=== PATIENT | female | born 1970 | race Caucasian/White ===

== ENCOUNTER → 2020-07-12 | Outpatient (CLI) | payer BC ==
[~2020-07-12] MED LIST: ACET500T68 PO; ASPI-630 PO; CELE200C PO; CETI10TA74 PO; OMEG-117 PO
== END | disposition home or self-care (01) ==
LOC: CCL 13:33
PROVIDERS: ATTEND Internal Medicine Cardiovascular Disease
DX: Z01.812 Encounter for preprocedural laboratory examination (principal); Z20.828 Contact with and (suspected) exposure to other viral communicable diseases; I73.9 Peripheral vascular disease, unspecified
CPT/HCPCS: U0003-CS

== ENCOUNTER 2020-07-15 06:56 | Outpatient (CLI) | payer BC ==
[2020-07-15] VITALS (12 sets, daily range): BP systolic 134–163; BP diastolic 74–99
[~2020-07-15] VITALS: Ht 170.2 cm; Wt 111.1 kg
[2020-07-15] MEDS ORDERED: LIDOCAINE 1% Multi-Dose 20 ML VIAL. ONE (07:35)
[2020-07-15] MEDS ORDERED: IODIXANOL 320 MG/ML 100 ML VIAL. ONE (07:35)
[2020-07-15] MEDS ORDERED: ASPI-630 PO (07:53)
[2020-07-15] MEDS ORDERED: CELE200C PO (07:53)
[2020-07-15] MEDS ORDERED: CETI10TA74 PO (07:53)
[2020-07-15] MEDS ORDERED: ACET500T68 PO (07:53)
[2020-07-15] MEDS ORDERED: OMEG-117 PO (07:53)
[2020-07-15 07:55] LABS: HEMATOCRIT 39.6 % (36.0-47.0); HEMOGLOBIN 13.3 g/dL (12.0-15.5); RED BLOOD COUNT 4.46 x10^6/uL (3.50-5.40); RED CELL DISTRIBUTION WIDTH 13.1 % (11.5-14.5)
[2020-07-15 08:04] LABS: PROTHROMBIN TIME PATIENT 12.2 SEC (11.7-14.0)
[2020-07-15 08:08] LABS: CALCIUM 8.6 mg/dL (8.5-10.1); CREATININE 0.9 mg/dL (0.6-1.0); POTASSIUM 4.4 mmol/L (3.5-5.1)
[2020-07-15] MEDS ORDERED: fentaNYL PF VIAL 250 MCG/5 ML VIAL ONE (08:34)
[2020-07-15] MEDS ORDERED: HEPARIN for IV BOLUS 10,000 UNIT/10 ML VIAL. ONE (08:34)
[2020-07-15] MEDS ORDERED: MIDAZOLAM HCL/PF 5 MG/5 ML VIAL. ONE (08:34)
[2020-07-15] MEDS ORDERED: VERAPAMIL 5 MG/2 ML VIAL. ONE (08:41)
[2020-07-15] MEDS ORDERED: VERAPAMIL 5 MG/2 ML VIAL. IART ONE (09:00)
[2020-07-15] MEDS ORDERED: NITROGLYCERIN 200 MCG/2 ML SYRINGE FOR CATH/VASC LAB. IART ONE (09:00)
[2020-07-15] MEDS ORDERED: IODIXANOL 320 MG/ML 100 ML VIAL. IART ONE (09:00)
[2020-07-15] MEDS ORDERED: MIDAZOLAM HCL/PF 5 MG/5 ML VIAL. IV ONE (09:00)
[2020-07-15] MEDS ORDERED: fentaNYL PF VIAL 250 MCG/5 ML VIAL IV ONE (09:00)
[2020-07-15] MEDS ORDERED: HEPARIN for IV BOLUS 10,000 UNIT/10 ML VIAL. IART ONE (09:00)
[2020-07-15] MEDS ORDERED: LIDOCAINE 1% Multi-Dose 20 ML VIAL. INJ ONE (09:00)
--- NOTE | 2020-07-15 09:32 | CARD ---
MR#: [id number] Date of Study: 07/15/2020 Ordering Physician: DELVIS STANTON, Referring Physician: DELVIS STANTON, Tech: MEL ESPINAL RT(R) APPROVED REPORT Patient StatusOUT-PATIENT Buccaro: MEL ESPINAL RT(R) Procedure(s) performed: Aortogram and bilateral lower extremity runoff FLUORO TIME: 3.6 MINUTES DOSE: 98 GYCM2 CONTRAST: 70ML VIVIPAQUE MODERATE SEDATION: 28 MINUTES PROCEDURE NARRATIVE After explaining the risks, benefits and alternative options, informed consent was obtained from shabbir ent. Patient was brought to the cardiac [facility] and her right wrist was prepped and draped in the u sual fashion after confirming a positive modified Jd's test. Arterial access was obtained in the right radial artery and 6 Lao sheath was inserted. A 6 Lao R2P multicurve catheter was then ad vanced under fluoroscopy guidance and with the tip positioned in the right common iliac artery, selec tive right lower extremity angiography was performed. This was then advanced into the left common il iac artery and selective left lower extremity angiography was performed. Finally, with the tip posit ioned in the distal descending aorta, aorto iliac angiography was performed. Patient tolerated the p rocedure well. Hemostasis was achieved using TR band. There were no immediate complications. FINDINGS 1. No significant stenosis involving the distal descending aorta. 2. Bilateral common iliac and external iliac arteries did not show any significant stenosis. 3. Bilateral common femoral and superficial femoral arteries did not show any significant stenosis. 4. No significant stenosis involving bilateral popliteal arteries. 5. There is three vessel runoff below the knee bilaterally. There was slightly sluggish flow below the knee probably from microvascular dysfunction. Conclusion No significant peripheral artery stenosis. Signed by : Delvis Stanton, Electronically Approved : 07/15/2020 09:32:19
[2020-07-15] MEDS ORDERED: IV 1/2 NORMAL SALINE 1,000 ML IV SCH (09:34)
--- NOTE | 2020-07-15 09:34 | PDOC ---
MODERATE SEDATION ASSESSMENT RISKS/ALTERNATIVES Risks/Alternatives Risks and alternatives of this type of sedation and procedure discussed with: RISK/ALTERNATIVES: Patient H & P ON CHART H & P H & P on chart and reviewed for co-morbid conditions and appropriate labs. H&P ON CHART: Yes STATUS PREG STATUS ASSESSED: N/A MEDS/ALLERGIES REVIEWED Meds/Allergies Reviewed Medications and Allergies including time and route of recently administered narcotics and sedatives. MEDS/ALLERGIES REVIEWED: Yes ASA RATING ASA RATING: II AIRWAY ASSESSMENT Airway Assessment Airway patency, oral function limitations, presence of caps, crowns, dentures, partials, and ability to extend neck assessed. AIRWAY ASSESSMENT: Yes MALLAMPATI SCORE MALLAMPATI SCORE: II PRE-SEDATION ASSESSMENT PRE-SEDATION ASSESSMENT: Yes DELVIS STANTON MD Jul 15, 2020 09:34
--- NOTE | 2020-07-15 12:08 | NUR ---
Pt and given discharge instructions, and paperwork signed. Discharge packet given, with education on radial site care and post moderate sedation. Pt denies any pain, sob, or dizziness. Pt ambulated to the bathroom with standby assistance; with no complications. Pt's iv in right hand remains in and patient transferred to echo room for further testing.
--- NOTE | 2020-07-15 18:01 | CARD ---
MR#: [id number] Date of Study: 07/15/2020 Ordering Physician: DELVIS STANTON, Referring Physician: DELVIS STANTON, Tech: Sharon Mccann APPROVED REPORT EXAM: Two-dimensional and M-mode echocardiogram with Doppler and color Doppler. Other Information Quality : GoodHR: 67bpm Technically limited study due to body habitus. INDICATION Dyspnea 2D DIMENSIONS RVDd2.9 (2.9-3.5cm)Left Atrium(2D)2.9 (1.6-4.0cm) IVSd1.0 (0.7-1.1cm)Aortic Root(2D)3.1 (2.0-3.7cm) LVDd4.6 (3.9-5.9cm)LVOT Diameter2.1 (1.8-2.4cm) PWd0.9 (0.7-1.1cm)LVDs3.0 (2.5-4.0cm) FS (%) 34.6 %SV60.5 ml LVEF(%)63.8 (>50%) Aortic Valve AoV Peak Amador.106.2cm/sAoV VTI22.2cm AO Peak GR.4.5mmHgLVOT Peak Amador.81.0cm/s LVOT VTI 16.36cmAO Mean GR.3mmHg AKUA (VMAX)2.41cm2 Mitral Valve MV E Eknjetak78.6cm/sMV DECEL [id number] MV A Qjexoqzk64.5cm/sMV E Mean Gr.1mmHg MV [id number]/A Ratio0.9 MVA (PHT)2.09cm2 TDI E/Lateral E'4.8E/Medial E'4.3 Pulmonary Valve PV Peak Dblvfaaf10.6cm/sPV Peak Grad.3mmHg Pulmonary Vein S1 Barirvei76.6cm/sD2 Ipwnzvyo79.9cm/s PVa [id number] LEFT VENTRICLE The left ventricle is normal size. There is normal left ventricular wall thickness. The left ventricu lar systolic function is normal and the ejection fraction is within normal range. The Ejection Fracti on is 55-60%. There is normal LV segmental wall motion. Transmitral Doppler flow pattern is Grade I-a bnormal relaxation pattern. RIGHT VENTRICLE The right ventricle is normal size. There is normal right ventricular wall thickness. The right ventr icular systolic function is normal. ATRIA The left atrium size is normal. The right atrium size is normal. The interatrial septum is intact wit h no evidence for an atrial septal defect or patent foramen ovale as noted on 2-D or Doppler imaging. AORTIC VALVE The aortic valve is normal in structure and function. Doppler and Color Flow revealed no significant aortic regurgitation. There is no significant aortic valvular stenosis. Calculated aortic valve area is 2.40 cm2 with maximum pressure gradient of 6 mmHg and mean pressure gradient of 3 mmHg. MITRAL VALVE The mitral valve is normal in structure and function. There is no evidence of mitral valve prolapse. There is no mitral valve stenosis. Doppler and Color Flow revealed no mitral valve regurgitation note d. TRICUSPID VALVE The tricuspid valve is normal in structure and function. Doppler and Color Flow revealed no tricuspid valve regurgitation noted. There is no tricuspid valve stenosis. PULMONIC VALVE The pulmonic valve is not well visualized. Doppler and Color Flow revealed trace pulmonic valvular re gurgitation. There is no pulmonic valvular stenosis. GREAT VESSELS The aortic root is normal in size. The ascending aorta is normal in size. The IVC is normal in size a nd collapses >50% with inspiration. PERICARDIAL EFFUSION There is no evidence of significant pericardial effusion. Critical Notification Critical Value: No <Conclusion> The left ventricular systolic function is normal and the ejection fraction is within normal range. Th e Ejection Fraction is 55-60%. There is normal LV segmental wall motion. Signed by : Jimmy Arana, Electronically Approved : 07/15/2020 18:00:35
== END 2020-07-15 12:45 | disposition home or self-care (01) ==
LOC: CCL 06:56
PROVIDERS: ATTEND Internal Medicine Cardiovascular Disease
DX: R06.09 Other forms of dyspnea (principal); Z88.0 Allergy status to penicillin; Z88.5 Allergy status to narcotic agent; Z88.8 Allergy status to other drugs, medicaments and biological substances; Z87.891 Personal history of nicotine dependence; Z79.82 Long term (current) use of aspirin; Z79.899 Other long term (current) drug therapy; Z79.01 Long term (current) use of anticoagulants
CPT/HCPCS: 36245; 36415; 75625; 75716; 80048; 85027; 85610; 93306; 99152; 99153; C1769; C1887; C1892; J1644; J2250; J3010; J3490; Q9967

== ENCOUNTER 2021-09-25 06:52 | Day surgery (SDC) | payer BC ==
[~2021-09-25] VITALS: Ht 170.2 cm; Wt 115.0 kg
[~2021-09-25 06:52] MED LIST changes: +HYDROmorphone 2 MG/ML VIAL IVP PRN; +IV RINGERS,LACTATED 1000ML 1,000 ML IV SCH; +MORPHINE SULFATE 2 MG/ML INJ. IVP PRN; +PROCHLORPERAZINE 10 MG/2 ML VIAL. IVP PRN; +fentaNYL PF VIAL 100 MCG/2 ML VIAL IVP PRN
[2021-09-25] MEDS ORDERED: BUPIVACAINE-EPI 0.5% 30 ML VIAL KIT. ONE (07:20)
[2021-09-25] MEDS ORDERED: GELATIN SPONGE SIZE 100. ONE (07:20)
[2021-09-25 07:26] VITALS: BP 131/61
[2021-09-25] MEDS ORDERED: PROPOFOL 10 MG/ML (20ML) VIAL. IV ONE (07:27)
[2021-09-25] MEDS ORDERED: ONDANSETRON PF 4 MG/2 ML VIAL. ONE (07:28)
[2021-09-25] MEDS ORDERED: KETOROLAC 30 MG/ML VIAL. ONE (07:28)
[2021-09-25] MEDS ORDERED: LIDOCAINE 2% PF 5 ML VIAL. ONE (07:28)
[2021-09-25] MEDS ORDERED: DEXAMETHASONE SOD PHOS 20 MG/5 ML VIAL. ONE (07:28)
[2021-09-25] MEDS ORDERED: fentaNYL PF VIAL 100 MCG/2 ML VIAL ONE (07:29)
[2021-09-25] MEDS ORDERED: NEOSTIGMINE 10 MG/10 ML VIAL. ONE (07:32)
[2021-09-25] MEDS ORDERED: GLYCOPYRROLATE 1 MG/5 ML VIAL. ONE (07:32)
[2021-09-25] MEDS ORDERED: FAMOTIDINE 20 MG/2 ML VIAL ONE (07:37)
[2021-09-25] MEDS ORDERED: ROCURONIUM 50 MG/5 ML VIAL. ONE (08:14)
[2021-09-25] MEDS ORDERED: BUPIVACAINE-EPI 0.5% 30 ML VIAL KIT. INJ ONE (09:28)
--- NOTE | 2021-09-25 09:59 | PDOC4 ---
Operative Note Operative Note Operative Note: Preoperative Diagnosis: Perianal fistula, external hemorrhoids Postoperative Diagnosis: Same Procedure: Perianal fistulotomy, external hemorrhoidectomy, 2 quadrants Surgeon: Curly Windows System Admin: Ming Carvajal MS 4 Anesthesia: General EBL: 10 mL Specimen: Hemorrhoids to pathology Drains: None Complications: None Indication: The patient is a 51-year-old female who presented with a chronic perianal draining spot. 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 In addition there are some small external hemorrhoid that she would like excised. The risks of surgery were discussed which include bleeding, infection, pain, incontinence, recurrence, potential need for additional surgery procedure. She understands and would like to proceed. Description: The patient was taken to the operating room and placed supine in the operating table. General anesthesia was performed. She was then placed in prone jackknife. The perianal skin was prepped with Betadine and draped in a standard surgical manner. There was an external draining fistula site located near the 10 to 11 o'clock position. A probe was placed through the external opening and the tract was readily identified extending from the anal gland. The fistula appeared quite superficial with no significant sphincter muscle involvement. An incision was made directly overlying the probe unroofing the fistula. One of the external hemorrhoids was adjacent to the fistulotomy tract and this was also excised and sent as a specimen. There was a second external hemorrhoid in a separate quadrant which was also excised using the LigaSure device. This was sent as a specimen to pathology. The fistulotomy site was then irrigated with sterile saline and hemostasis was achieved with cautery. A sterile gauze dressing was applied. The patient tolerated the procedure well and was sent to the recovery room in stable condition. At the end of the case all counts were correct YARITZA JEFFERSON MD Sep 25, 2021 09:59
[2021-09-25] MEDS ORDERED: OXYC-325 PO (10:06)
--- NOTE | 2021-09-25 10:09 | DISCH ---
DISCHARGE INSTRUCTIONS Condition on Discharge Condition on Discharge: Stable Activity After Discharge Activity Instructions for Disc: Activity as tolerated Driving Instructions after Dis: Other, see below (no driving while taking pain meds) Wound Incision Care Wound/Incision Care: Other, see below (keep wound dressed with gauze pad, sitz baths 2-3 times daily) Follow-Up Follow up with: Dr Jefferson in 2 weeks in office, call for appointment [phone] YARITZA JEFFERSON MD Sep 25, 2021 10:09
[2021-09-25] MEDS ORDERED: oxyCODONE/APAP 5/325 1 TAB TABLET PO ONE (10:15)
[2021-09-25 10:19] VITALS: BP 128/50
[2021-09-25] MEDS ORDERED: SEVOFLURANE 31 TO 60 MINUTES. IH ONE (11:04)
--- NOTE | 2021-09-26 15:13 | PATHOLOGY ---
[facility] Accession Number: [id number] . 01 Material submitted: . hemorrhoids - HEMORRHOID . 01 Clinical history: . EUA, POSS FISTULOTOMY, HEMORRHOIDS . 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 ([facility]; 09/26/2021) P 09/26/2021 1350 Local . 02 Comment: There is no evidence of malignancy. ([facility]; 09/26/2021) . 02 Electronically signed: . Paulie Ayala MD, Pathologist NPI- [id number] . 01 Gross description: . Fixative: Formalin Labeled: Hemorrhoids Specimen received: 2 segments of light ho-mckay tissue Dimensions: 0.8 x 0.3 x 0.2 cm and 1.2 x 0.8 x 0.5 cm Cut surface: Light ho-pink with focally dilated vasculature Specimen submitted entirely in cassette A1. ([facility]; 09/25/2021) [facility] 09/25/2021 1720 Local . 02 Pathologist provided ICD-10: K64.4 . 02 CPT . 562492 Specimen Comment: A courtesy copy of this report has been sent to [phone], [phone] Specimen Comment: [id number] Specimen Comment: Report sent to / DR PAULINO Specimen Comment: A duplicate report has been generated due to demographic updates. Performed at: 01 [facility] [address], [place], [place] [id number] MD Joseluis Barlow MD Phone: [phone] Performed at: 02 [facility] [address], [place] [id number] MD Paulie Ayala MD Phone: [phone]
== END 2021-09-25 10:48 | disposition home or self-care (01) ==
LOC: SURG 06:52
PROVIDERS: ATTEND Surgery
DX: K60.3 Anal fistula (principal); K64.4 Residual hemorrhoidal skin tags; E78.00 Pure hypercholesterolemia, unspecified; E66.9 Obesity, unspecified; M19.90 Unspecified osteoarthritis, unspecified site; F41.9 Anxiety disorder, unspecified; Z87.891 Personal history of nicotine dependence; Z79.899 Other long term (current) drug therapy; Z98.890 Other specified postprocedural states; Z88.0 Allergy status to penicillin; Z88.1 Allergy status to other antibiotic agents; Z88.5 Allergy status to narcotic agent
CPT/HCPCS: 45990; 46255; 88304; A4930; J1100; J1885; J1956; J2405; J2704; J2710; J3010; J3490